=== PATIENT | male | born 1955 | race Caucasian/White ===

== ENCOUNTER 2017-04-20 17:08 | Inpatient (IN) | payer OTHER ==
[~2017-04-20] VITALS: Ht 182.9 cm; Wt 97.4 kg
[2017-04-20] VITALS (12 sets, daily range): BP systolic 96–142; BP diastolic 54–77; PULSE 58–86; RESP 16–20; TEMP 97.7; O2SAT 84–97
[~2017-04-20 17:08] MED LIST: ALBU8I INH; ALFU10TA2 PO; AZIT250T74 PO; CLON0.2T PO; FURO1TAB93 PO; HEP C MEDICATION PO; HYDR-2768 PO; HYDR25TA35 PO; KCL10 PO; LISI10 PO; OMEP20TA39 PO; PRED20 PO; PROP40TA3 PO; SYMB160A INH; Z.0.OXYGENDME NC; [UNRECOGNIZED DRUG - CODE] PO
[2017-04-20] MEDS ORDERED: CLON0.2T PO (17:33)
[2017-04-20] MEDS ORDERED: SPIR50TA PO (17:33)
[2017-04-20] MEDS ORDERED: LISI10TA3 PO (17:33)
[2017-04-20] MEDS ORDERED: PROP40TA3 PO (17:33)
[2017-04-20] MEDS ORDERED: SODIUM CHLORIDE 0.9% FLUSH 10 ML FLUSH IVF PRN (17:45)
[2017-04-20] MEDS ORDERED: methylPREDNISolone SOD SUCC 125 MG/2 ML VIAL IV PUSH ONE (17:45)
[2017-04-20] MEDS: RESP: ALBUTEROL 2.5 MG/IPRATROPIUM 0.5 MG NEB (SCH) INH ×2 (17:48→17:51)
--- NOTE | 2017-04-20 17:59 | PD ---
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 He states that he lately has been using oxygen most of the time about 3 or so liters at home. He states the past couple of days he felt like he had the flu with cough and congestion and shortness of breath. He denies any other concurrent complaints at this time. Patient is a poor historian and his helps supplement history. He is currently not on antibiotics but is on steroids. PFSH Past Medical History Arthritis: No Asthma: No Anxiety: No Depression: No Heart Rhythm Problems: No Cancer: No Cardiovascular Problems: Yes High Cholesterol: No Chemotherapy: No Chest Pain: Yes Congestive Heart Failure: No COPD: Yes Cerebrovascular Accident: No Diabetes: No Endocrine: No GERD: Yes Genitourinary: No Hepatitis: Yes (HEP C) Hiatal Hernia: No Hypertension: Yes Immune Disorder: No Kidney Stones: No Musculoskeletal: No Neurologic: No Psychiatric: No Reproductive: No Respiratory: Yes Migraines: No Radiation Therapy: No Renal Failure: No Seizures: No Sickle Cell Disease: No Sleep Apnea: No Thyroid Disease: No Ulcer: No Influenza Vaccination: No Past Surgical History Abdominal Surgery: No AICD: No Arteriovenous Shunt: No Cardiac Surgery: No Ear Surgery: No Endocrine Surgery: No Eye Surgery: Yes (CATARACTS BILAT RAYSA) Genitourinary Surgery: Yes Gynecologic Surgery: No Insulin Pump: No Joint Replacement: No Oral Surgery: No Pacemaker: No Thoracic Surgery: Yes (lung biopsy ) Other Surgery: Yes (HEMORRHOIDS) Social History Alcohol Use: Yes (COUPLE OF BEERS DAILY ) Tobacco Use: No (QUIT 2006) Substance Use: No Allergies-Medications (Allergen,Severity, Reaction): Coded Allergies: penicillin G (Unverified Allergy, Unknown, "almost killed me", 04/20/17) Reported Meds & Prescriptions Reported Meds & Active Scripts Active Reported Lisinopril 10 Mg Tab 10 Mg PO DAILY Propranolol (Propranolol HCl) 40 Mg Tab 40 Mg PO DAILY Spironolactone 50 Mg Tab 50 Mg PO DAILY Review of Systems Except as stated in HPI: all other systems reviewed are Neg Physical Exam Narrative GENERAL: Well-nourished, well-developed patient. SKIN: Warm and dry. HEAD: Normocephalic and atraumatic. EYES: No injection or drainage. ENT: No nasal drainage noted. NECK: Supple, trachea midline. CARDIOVASCULAR: Regular rate and rhythm RESPIRATORY: Decreased aeration with expiratory wheezing bilaterally. No accessory muscle use. GASTROINTESTINAL: Abdomen soft, non-tender, nondistended. EXTREMITIES: No edema. NEUROLOGICAL: Awake and alert. moves all extremities and sensory grossly within normal limits. Normal speech. Data Data Last Documented VS Orders Orders Complete Blood Count With Diff (04/20/17 17:34) Comprehensive Metabolic Panel (04/20/17 17:34) B-Type Natriuretic Peptide (04/20/17 17:34) Act Partial Throm Time (Ptt) (04/20/17 17:34) Prothrombin Time / Inr (Pt) (04/20/17 17:34) Magnesium (Mg) (04/20/17 17:34) Ckmb (Isoenzyme) Profile (04/20/17 17:34) Troponin I (04/20/17 17:34) Urinalysis - C+S If Indicated (04/20/17 17:34) Influenzae A/B Antigen (04/20/17 17:34) Blood Culture (04/20/17 17:34) Iv Access Insert/Monitor (04/20/17 17:34) Electrocardiogram (04/20/17 17:34) Ecg Monitoring (04/20/17 17:34) Oximetry (04/20/17 17:34) Oxygen Administration (04/20/17 17:34) Chest, Single Ap (04/20/17 17:34) Sodium Chloride 0.9% Flush (Ns Flush) (04/20/17 17:45) Methylprednisolone So Succ Inj (Solumedr (04/20/17 17:45) Albuterol-Ipratropium Neb (Duoneb Neb) (04/20/17 17:45) Lactic Acid (04/20/17 17:34) Aztreonam Inj (Azactam Inj) (04/20/17 18:15) Levofloxacin 750 Mg Premix Inj (Levaquin (04/20/17 18:15) Sodium Chlor 0.9% 1000 Ml Inj (Ns 1000 M (04/20/17 19:00) Sodium Chlor 0.9% 1000 Ml Inj (Ns 1000 M (04/20/17 19:30) Furosemide Inj (Lasix Inj) (04/20/17 21:15) Sodium Chloride 0.9% Flush (Ns Flush) (04/20/17 22:30) Sodium Chloride 0.9% Flush (Ns Flush) (04/21/17 09:00) Levofloxacin 500 Mg Premix Inj (Levaquin (04/21/17 21:00) Albuterol-Ipratropium Neb (Duoneb Neb) (04/20/17 22:30) Methylprednisolone So Succ Inj (Solumedr (04/20/17 22:30) Place In Observation (04/20/17 ) Vital Signs (Adult) Q4H (04/20/17 22:16) Activity Oob With Assistance PRN (04/20/17 22:16) Notify Parameters (04/20/17 22:16) Intake + Output Q8H (04/20/17 22:16) ^ Smoking Cessation Counseling (04/20/17 22:16) Diet Heart Healthy (04/21/17 Breakfast) Complete Blood Count With Diff (04/21/17 06:00) Basic Metabolic Panel (Bmp) (04/21/17 06:00) Heparin Inj (Heparin Inj) (04/20/17 22:30) Admit Order (Ed Use Only) (04/20/17 ) Vital Signs (Adult) Q4H (04/20/17 22:20) Labs Laboratory Tests Test 04/20/17 18:00 04/20/17 19:11 White Blood Count 18.9 TH/MM3 Red Blood Count 4.96 MIL/MM3 Hemoglobin 15.2 GM/DL Hematocrit 47.1 % Mean Corpuscular Volume 95.1 FL Mean Corpuscular Hemoglobin 30.7 PG Mean Corpuscular Hemoglobin Concent 32.3 % Red Cell Distribution Width 12.8 % Platelet Count 133 TH/MM3 Mean Platelet Volume 9.6 FL Neutrophils (%) (Auto) 82.4 % Lymphocytes (%) (Auto) 6.3 % Monocytes (%) (Auto) 9.2 % Eosinophils (%) (Auto) 0.3 % Basophils (%) (Auto) 1.8 % Neutrophils # (Auto) 15.6 TH/MM3 Lymphocytes # (Auto) 1.2 TH/MM3 Monocytes # (Auto) 1.7 TH/MM3 Eosinophils # (Auto) 0.1 TH/MM3 Basophils # (Auto) 0.3 TH/MM3 CBC Comment AUTO DIFF Differential Comment AUTO DIFF CONFIRMED Prothrombin Time 12.0 SEC Prothromb Time International Ratio 1.2 RATIO Activated Partial Thromboplast Time 29.0 SEC B-Type Natriuretic Peptide 86 PG/ML Blood Urea Nitrogen 19 MG/DL Creatinine 1.90 MG/DL Random Glucose 128 MG/DL Total Protein 7.2 GM/DL Albumin 2.7 GM/DL Calcium Level 8.6 MG/DL Magnesium Level 1.9 MG/DL Alkaline Phosphatase 50 U/L Aspartate Amino Transf (AST/SGOT) 10 U/L Alanine Aminotransferase (ALT/SGPT) 12 U/L Total Bilirubin 0.6 MG/DL Sodium Level 131 MEQ/L Potassium Level 4.7 MEQ/L Chloride Level 91 MEQ/L Carbon Dioxide Level 35.1 MEQ/L Anion Gap 5 MEQ/L Estimat Glomerular Filtration Rate 36 ML/MIN Lactic Acid Level 1.7 mmol/L Total Creatine Kinase 22 U/L Troponin I LESS THAN 0.02 NG/ML MDM Medical Decision Making Medical Screen Exam Complete: Yes Emergency Medical Condition: Yes Medical Record Reviewed: Yes (pmh confirmed) Differential Diagnosis Sepsis, pneumonia, URI, COPD exacerbation, pneumothorax Narrative Course Will check blood work, chest x-ray, influenza and dose with DuoNeb's and Solu- Medrol and reevaluate Physician Communication Physician Communication dr valentin to follow workup and admit Scripts Fluticasone-Salmeterol Inh (Advair Diskus Inh) 250-50 Mcg/Blist Aer 1 PUFF INH BID for Shortness of Breath for 30 Days, #1 INHALER 0 Refills Rinse mouth after use. Prov: Mona Osuna CREW LEAD 04/22/17 Clonidine (Clonidine) 0.1 Mg Tab 0.1 MG PO HS for Blood Pressure Management for 30 Days, #30 TAB 0 Refills Prov: Mona Osuna CREW LEAD 04/22/17 Doxycycline Hyclate (Doxycycline Hyclate) 100 Mg Cap 100 MG PO BID for Infection for 5 Days, #10 CAP 0 Refills Prov: Mona Osuna CREW LEAD 04/22/17 Toya Hernández MD Apr 20, 2017 17:59
--- NOTE | 2017-04-20 18:05 | RADRPT ---
EXAM DATE/TIME: 04/20/2017 17:48 [facility] COMPARISON: CHEST SINGLE AP, January 16, 2016, 14:24. INDICATIONS : Low blood pressure. Patient sent to the emergency room from primary doctor's office. MEDICAL HISTORY : Chronic obstructive pulmonary disease. Hypertension Emphysema. Hep C. GERD. SURGICAL HISTORY : None. ENCOUNTER: Initial ACUITY: 1 day PAIN SCORE: 0/10 LOCATION: Bilateral chest FINDINGS: A single view of the chest demonstrates interval development of a rather diffuse, predominantly inter stitial process in the right hemithorax, most severe in the right upper lung. Minimal interstitial ch anges on the left apex very left base is completely clear. Heart size is normal. Osseous structures a re intact. CONCLUSION: 1. Interval development of a predominantly interstitial process in the right hemithorax, most severe in the upper lobe. Similar findings to a much lesser degree in the left upper lobe. Findings could re present pneumonic infiltrates. 2. Heart size remains normal. Walker Ashton MD on April 20, 2017 at 18:01 Board Certified Radiologist. This report was verified electronically.
[2017-04-20] MEDS ORDERED: AZTREONAM INJ 2,000 MG in SODIUM CHLORIDE 0.9% INJ 100 ML IV ONE (18:15)
[2017-04-20] MEDS ORDERED: LEVOFLOXACIN 750 MG PREMIX INJ 150 ML IV ONE (18:15)
[2017-04-20 18:38] LABS: AUTOMATED NEUTROPHIL # 15.6 TH/MM3 (1.8-7.7); BASOPHIL # 0.3 TH/MM3 (0-0.2); BASOPHIL % 1.8 % (0.0-2.0); EOSINOPHIL # 0.1 TH/MM3 (0-0.4); EOSINOPHIL % 0.3 % (0.0-4.0); HEMATOCRIT 47.1 % (39.0-51.0); HEMOGLOBIN 15.2 GM/DL (13.0-17.0); LYMPH % 6.3 % (9.0-44.0); LYMPHOCYTE # 1.2 TH/MM3 (1.0-4.8); MEAN CELL VOLUME 95.1 FL (80.0-100.0); MEAN CORPUSCULAR HEMOGLOBIN 30.7 PG (27.0-34.0); MEAN CORPUSCULAR HGB CONC 32.3 % (32.0-36.0); MEAN PLATELET VOLUME 9.6 FL (7.0-11.0); MONO % 9.2 % (0.0-8.0); MONOCYTE # 1.7 TH/MM3 (0-0.9); NEUT % 82.4 % (16.0-70.0); PLATELET COUNT 133 TH/MM3 (150-450); RED BLOOD COUNT 4.96 MIL/MM3 (4.50-5.90); RED CELL DISTRIBUTION WIDTH 12.8 % (11.6-17.2); WHITE BLOOD COUNT 18.9 TH/MM3 (4.0-11.0)
[2017-04-20] MEDS ORDERED: SODIUM CHLOR 0.9% 1000 ML INJ 1,000 ML IV ONE ×2 (19:00→19:30)
[2017-04-20 19:02] LABS: INTERNATIONAL NORMALIZED RATIO 1.2 RATIO
[2017-04-20 19:33] LABS: CHLORIDE 91 MEQ/L (98-107); SODIUM (NA) 131 MEQ/L (136-145)
[2017-04-20 19:36] LABS: CALCIUM 8.6 MG/DL (8.5-10.1)
[2017-04-20 19:37] LABS: ALBUMIN 2.7 GM/DL (3.4-5.0); BICARBONATE 35.1 MEQ/L (21.0-32.0); BLOOD UREA NITROGEN 19 MG/DL (7-18); GLUCOSE,RANDOM 128 MG/DL (74-106); MAGNESIUM 1.9 MG/DL (1.5-2.5)
[2017-04-20 19:40] LABS: ALT (GPT) 12 U/L (12-78); AST (GOT) 10 U/L (15-37); GLOMERULAR FILTRATION RATE 36 ML/MIN (>89)
[2017-04-20 19:41] LABS: TOTAL BILIRUBIN ADULT 0.6 MG/DL (0.2-1.0); TOTAL PROTEIN 7.2 GM/DL (6.4-8.2)
[2017-04-20 19:43] LABS: ALKALINE PHOSPHATASE 50 U/L (45-117)
[2017-04-20 19:45] LABS: TROPONIN I LESS THAN 0.02 NG/ML (0.02-0.05)
--- NOTE | 2017-04-20 21:10 | EKG ---
Date Performed: 04/20/2017 Time Performed: 17:46:57 PTAGE: 62 years EKG: Sinus rhythm WITH OCCASIONAL VENTRICULAR PREMATURE COMPLEXES RIGHt AXIS POSSIBLE LEFT ATRIAL ENLARGEMENT POSSIBLE RIGHT VENTRICULAR HYPERTROPHY ABNORMAL ECG PREVIOUS TRACING : 01/16/2016 14.08 Since previous tracing rate faster DOCTOR: Ally Douglas Interpretating Date/Time 04/20/2017 21:08:56
[2017-04-20] MEDS ORDERED: FUROSEMIDE 20 MG/2 ML VIAL IV PUSH ONE (21:15)
--- NOTE | 2017-04-20 21:45 | PD ---
Physical Exam Date Seen by Provider: Apr 20, 2017 Narrative This patient's care was assumed from Dr. beckman at 7 PM. He had been sent to us from a open [facility] office because of hypotension. This patient has a history of COPD and is on oxygen at 3-1/2 L at home. He reports the onset of flulike symptoms about 2 days ago. He went to the open winder's office today for treatment of his flulike symptoms. He was found to be hypotensive and was sent to us for further evaluation. He has a history of hypertension but states that his blood pressure is controlled with medications. He believes that his normal systolic blood pressure is about 120 to 130. He states that he has been feeling very dizzy for the last day or 2. He denies any significant respiratory distress. Medical history is significant for COPD, hypertension and hepatitis C. He normally wears oxygen at home at 3-1/2 L. Data Data Last Documented VS Vital Signs Date Time Temp Pulse Resp B/P (MAP) Pulse Ox O2 Delivery O2 Flow Rate FiO2 04/20/17 21:05 82 20 142/68 (92) 96 Nasal Cannula 3.50 04/20/17 17:21 97.7 Orders Orders Complete Blood Count With Diff (04/20/17 17:34) Comprehensive Metabolic Panel (04/20/17 17:34) B-Type Natriuretic Peptide (04/20/17 17:34) Act Partial Throm Time (Ptt) (04/20/17 17:34) Prothrombin Time / Inr (Pt) (04/20/17 17:34) Magnesium (Mg) (04/20/17 17:34) Ckmb (Isoenzyme) Profile (04/20/17 17:34) Troponin I (04/20/17 17:34) Urinalysis - C+S If Indicated (04/20/17 17:34) Influenzae A/B Antigen (04/20/17 17:34) Blood Culture (04/20/17 17:34) Iv Access Insert/Monitor (04/20/17 17:34) Electrocardiogram (04/20/17 17:34) Ecg Monitoring (04/20/17 17:34) Oximetry (04/20/17 17:34) Oxygen Administration (04/20/17 17:34) Chest, Single Ap (04/20/17 17:34) Sodium Chloride 0.9% Flush (Ns Flush) (04/20/17 17:45) Methylprednisolone So Succ Inj (Solumedr (04/20/17 17:45) Albuterol-Ipratropium Neb (Duoneb Neb) (04/20/17 17:45) Lactic Acid (04/20/17 17:34) Aztreonam Inj (Azactam Inj) (04/20/17 18:15) Levofloxacin 750 Mg Premix Inj (Levaquin (04/20/17 18:15) Sodium Chlor 0.9% 1000 Ml Inj (Ns 1000 M (04/20/17 19:00) Sodium Chlor 0.9% 1000 Ml Inj (Ns 1000 M (04/20/17 19:30) Furosemide Inj (Lasix Inj) (04/20/17 21:15) Sodium Chloride 0.9% Flush (Ns Flush) (04/20/17 22:30) Sodium Chloride 0.9% Flush (Ns Flush) (04/21/17 09:00) Levofloxacin 500 Mg Premix Inj (Levaquin (04/21/17 09:00) Albuterol-Ipratropium Neb (Duoneb Neb) (04/20/17 22:30) Methylprednisolone So Succ Inj (Solumedr (04/20/17 22:30) Place In Observation (04/20/17 ) Vital Signs (Adult) Q4H (04/20/17 22:16) Activity Oob With Assistance PRN (04/20/17 22:16) Notify Parameters (04/20/17 22:16) Intake + Output Q8H (04/20/17 22:16) ^ Smoking Cessation Counseling (04/20/17 22:16) Diet Heart Healthy (04/21/17 Breakfast) Complete Blood Count With Diff (04/21/17 06:00) Basic Metabolic Panel (Bmp) (04/21/17 06:00) Heparin Inj (Heparin Inj) (04/20/17 22:30) Labs Laboratory Tests Test 04/20/17 18:00 04/20/17 19:11 White Blood Count 18.9 TH/MM3 Red Blood Count 4.96 MIL/MM3 Hemoglobin 15.2 GM/DL Hematocrit 47.1 % Mean Corpuscular Volume 95.1 FL Mean Corpuscular Hemoglobin 30.7 PG Mean Corpuscular Hemoglobin Concent 32.3 % Red Cell Distribution Width 12.8 % Platelet Count 133 TH/MM3 Mean Platelet Volume 9.6 FL Neutrophils (%) (Auto) 82.4 % Lymphocytes (%) (Auto) 6.3 % Monocytes (%) (Auto) 9.2 % Eosinophils (%) (Auto) 0.3 % Basophils (%) (Auto) 1.8 % Neutrophils # (Auto) 15.6 TH/MM3 Lymphocytes # (Auto) 1.2 TH/MM3 Monocytes # (Auto) 1.7 TH/MM3 Eosinophils # (Auto) 0.1 TH/MM3 Basophils # (Auto) 0.3 TH/MM3 CBC Comment AUTO DIFF Differential Comment AUTO DIFF CONFIRMED Prothrombin Time 12.0 SEC Prothromb Time International Ratio 1.2 RATIO Activated Partial Thromboplast Time 29.0 SEC B-Type Natriuretic Peptide 86 PG/ML Blood Urea Nitrogen 19 MG/DL Creatinine 1.90 MG/DL Random Glucose 128 MG/DL Total Protein 7.2 GM/DL Albumin 2.7 GM/DL Calcium Level 8.6 MG/DL Magnesium Level 1.9 MG/DL Alkaline Phosphatase 50 U/L Aspartate Amino Transf (AST/SGOT) 10 U/L Alanine Aminotransferase (ALT/SGPT) 12 U/L Total Bilirubin 0.6 MG/DL Sodium Level 131 MEQ/L Potassium Level 4.7 MEQ/L Chloride Level 91 MEQ/L Carbon Dioxide Level 35.1 MEQ/L Anion Gap 5 MEQ/L Estimat Glomerular Filtration Rate 36 ML/MIN Lactic Acid Level 1.7 mmol/L Total Creatine Kinase 22 U/L Troponin I LESS THAN 0.02 NG/ML [facility] Supervised Visit with JOHN: No Narrative Course This patient looks good. He does not meet SIRS/sepsis criteria. He does not have any respiratory distress with talking. He did have some respiratory distress when he got up to go to the bathroom but he was off of oxygen at the time. Vital Signs Date Time Temp Pulse Resp B/P (MAP) Pulse Ox O2 Delivery O2 Flow Rate FiO2 04/20/17 21:05 82 20 142/68 (92) 96 Nasal Cannula 3.50 04/20/17 21:00 16 87 Nasal Cannula 3.00 04/20/17 20:30 76 16 110/63 (79) 94 Nasal Cannula 2.00 04/20/17 20:00 78 16 100/63 (75) 92 Nasal Cannula 2.00 04/20/17 19:45 80 16 96/61 (73) 93 Nasal Cannula 2.00 04/20/17 19:05 16 93 Nasal Cannula 2.00 04/20/17 17:50 92 Nasal Cannula 2.00 04/20/17 17:40 91 Room Air 2.00 04/20/17 17:37 19 93 Nasal Cannula 2.00 04/20/17 17:30 92 Nasal Cannula 2.00 04/20/17 17:21 97.7 86 18 126/59 (81) 85 Last Impressions Chest X-Ray 04/20/17 1734 Signed Impressions: Service Date/Time: Thursday, April 20, 2017 17:48 - CONCLUSION: 1. Interval development of a predominantly interstitial process in the right hemithorax, most severe in the upper lobe. Similar findings to a much lesser degree in the left upper lobe. Findings could represent pneumonic infiltrates. 2. Heart size remains normal. Walker Ashton MD CBC Diagram 04/20/17 18:00 BMP Diagram 04/20/17 19:11 Total Protein 7.2, Albumin 2.7 L, Calcium Level 8.6, Magnesium Level 1.9, Alkaline Phosphatase 50, Aspartate Amino Transf (AST/SGOT) 10 L, Alanine Aminotransferase (ALT/SGPT) 12, Total Bilirubin 0.6 Lactic acid is 1.7. Troponin is less than 0.02. The patient presented to us hypotensive. He was fluid resuscitated. He was watched here in the emergency department while being resuscitated. His blood pressure is now stable. I feel that he is stable to go to a regular bed other than the ICU. He has been treated for hospital-acquired pneumonia with aztreonam and Levaquin. He is penicillin allergic. Critical Care Narrative Aggregate critical care time was 45 minutes. Time to perform other separately billable procedures was not included in the critical care time. My time did not include minutes spent treating any other patients simultaneously or on activities that did not directly contribute to the patient's treatment. The services I provided to this patient were to treat and/or prevent clinically significant deterioration due to hypotension, pneumonia, rule out sepsis I provided critical care services requiring my management, as noted below: Chart data review, documentation time, medication orders and management, vital sign assessments/reviewing monitor data, ordering and reviewing lab tests, ordering and interpreting/reviewing x-rays and diagnostic studies, care of the patient and discussion of the patient with the admitting physicians Sepsis Criteria SIRS Criteria (2 or more): WBC > 66904, < 4000 or > 10% bands Sepsis Criteria (SIRS+source): Infect source susp/known Physician Communication Physician Communication Dr. Gamez Diagnosis Primary Impression: Pneumonia Qualified Codes: J18.9 - Pneumonia, unspecified organism Additional Impression: Hypotension Qualified Codes: I95.9 - Hypotension, unspecified Admitting Information Admitting Physician Requests: Admit Condition: Stable Reyna Hampton MD Apr 20, 2017 21:45
[2017-04-20] MEDS ORDERED: SODIUM CHLORIDE 0.9% FLUSH 10 ML FLUSH IV FLUSH PRN (22:30)
[2017-04-20] MEDS: methylPREDNISolone SOD SUCC 40 MG/1 ML VIAL IV PUSH SCH (23:23)
[2017-04-20] MEDS: HEPARIN SODIUM - SQ 10,000 UNITS/ML VIAL SQ SCH (23:26)
[2017-04-21] VITALS (9 sets, daily range): BP systolic 120–159; BP diastolic 77–85; PULSE 76–96; RESP 20–22; TEMP 96–97.8; O2SAT 91–96
[2017-04-21 04:13] LABS: BILIRUBIN, URINE NEG (NEG); GLUCOSE,URINE NEG (NEG); KETONE, URINE TRACE mg/dL (NEG); NITRITE,URINE NEG (NEG); URINE LEUKOCYTE ESTERASE NEG (NEG)
[2017-04-21 04:21] LABS: BLOOD, URINE TRACE (NEG); URINE COLOR YELLOW (YELLW/STRAW)
[2017-04-21 04:23] LABS: MUCUS URINE MOD /lpf (OCC); SQUAMOUS EPITHELIAL CELL URINE 0-5 /hpf (0-5)
[2017-04-21 04:25] LABS: RBC, URINE 0-3 /hpf (0-3); WBC, URINE 0-2 /hpf (0-5)
[2017-04-21] MEDS: AZTREONAM INJ 2,000 MG in SODIUM CHLORIDE 0.9% INJ 100 ML IV SCH ×3 (04:37→20:58)
[2017-04-21 06:41] LABS: AUTOMATED NEUTROPHIL # 12.8 TH/MM3 (1.8-7.7); HEMATOCRIT 45.7 % (39.0-51.0); HEMOGLOBIN 14.2 GM/DL (13.0-17.0); LYMPH % 5.1 % (9.0-44.0); LYMPHOCYTE # 0.7 TH/MM3 (1.0-4.8); MEAN CELL VOLUME 93.9 FL (80.0-100.0); MEAN CORPUSCULAR HEMOGLOBIN 29.3 PG (27.0-34.0); MEAN CORPUSCULAR HGB CONC 31.2 % (32.0-36.0); MEAN PLATELET VOLUME 8.5 FL (7.0-11.0); MONO % 2.8 % (0.0-8.0); MONOCYTE # 0.4 TH/MM3 (0-0.9); NEUT % 92.1 % (16.0-70.0); PLATELET COUNT 124 TH/MM3 (150-450); RED BLOOD COUNT 4.86 MIL/MM3 (4.50-5.90); RED CELL DISTRIBUTION WIDTH 12.3 % (11.6-17.2); WHITE BLOOD COUNT 13.9 TH/MM3 (4.0-11.0)
[2017-04-21 07:03] LABS: BICARBONATE 35.2 MEQ/L (21.0-32.0); CALCIUM 8.3 MG/DL (8.5-10.1); CREATININE 0.94 MG/DL (0.60-1.30)
[2017-04-21] MEDS: RESP: ALBUTEROL 2.5 MG/IPRATROPIUM 0.5 MG NEB (PRN) INH ×3 (07:38→21:04)
[2017-04-21] MEDS: SODIUM CHLORIDE 0.9% FLUSH 10 ML FLUSH IV FLUSH SCH ×2 (09:44→20:58)
[2017-04-21] MEDS: HEPARIN SODIUM - SQ 10,000 UNITS/ML VIAL SQ SCH ×3 (09:49→22:20)
[2017-04-21] MEDS: methylPREDNISolone SOD SUCC 40 MG/1 ML VIAL IV PUSH SCH ×2 (12:20→22:29)
[2017-04-21] MEDS ORDERED: VANCOMYCIN 1 GM/200 ML INJ 200 ML IV SCH (17:30)
[2017-04-21] MEDS ORDERED: Vancomycin Consult Pharmacy 1 EA OTHER SCH (17:30)
--- NOTE | 2017-04-21 17:56 | HHI.HP ---
[facility] Admission Diagnosis Pneumonia Diagnoses: Chief Complaint: Shortness of breath Travel History International Travel<30 Days: No Contact w/Intl Traveler <30 Da: No Traveled to Known Affected Are: No History of Present Illness Written by Mona Osuna, acting as scribe for Dr. Lilly on 04/21/17 at 17: 48. This is a pleasant 62-year-old male patient with a known medical history of COPD and hypertension who presented to the ED with complaints of low blood pressure and shortness of breath. 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 Patient states that over the past few days he is becoming increasingly short of breath requiring increased use of his home oxygen. He states he usually uses roughly 2 L NC at home continuously and has had to increase it to 3.5 L NC. Patient denies any recent cough. He does state that he has been feeling under the weather and with the flu and admits to recent fever or diaphoresis. Does admit to recent steroid use denies any recent antibiotics. Denies any chest pain, abdominal pain, nausea, vomiting or diarrhea. Review of Systems Constitutional: DENIES: Fatigue, Fever, Chills Eyes: DENIES: Blurred vision, Diplopia Respiratory: COMPLAINS OF: Cough, Sputum production, Shortness of breath Cardiovascular: DENIES: Chest pain, Palpitations Gastrointestinal: DENIES: Abdominal pain, Black stools, Bloody stools, Constipation, Diarrhea, Nausea, Vomiting Musculoskeletal: DENIES: Joint pain Integumentary: DENIES: Abnormal pigmentation Hematologic/lymphatic: DENIES: Bruising Immunologic/allergic: DENIES: Eczema Neurologic: DENIES: Abnormal gait Psychiatric: COMPLAINS OF: Anxiety Except as stated in HPI: all other systems reviewed are Neg Past Family Social History Past Medical History COPD History of hepatitis C Hypertension Past Surgical History Hemorrhoid banding Colonoscopy Lung biopsy Bilateral cataracts Ruptured testicle repair Reported Medications Active Reported Clonidine (Clonidine HCl) 0.2 Mg Tab 0.2 Mg PO HS Lisinopril 10 Mg Tab 10 Mg PO DAILY Propranolol (Propranolol HCl) 40 Mg Tab 40 Mg PO DAILY Spironolactone 50 Mg Tab 50 Mg PO DAILY Allergies: Coded Allergies: penicillin G (Unverified Allergy, Unknown, "almost killed me", 04/20/17) Active Ordered Medications Current Medications Medications (Trade) Dose Ordered Sig/[place] Route Start Time Stop Time Status Last Admin (NS Flush) 2 ml UNSCH PRN IVF 04/20/17 17:45 (NS Flush) 2 ml UNSCH PRN IV FLUSH 04/20/17 22:30 (NS Flush) 2 ml BID IV FLUSH 04/21/17 09:00 04/21/17 09:44 Levofloxacin/ Dextrose 100 ml @ 100 mls/hr Q24H IV 04/21/17 21:00 (Duoneb Neb) 1 ampule Q4HR NEB PRN INH 04/20/17 22:30 04/21/17 14:07 (SoluMEDROL INJ) 40 mg Q12H IV PUSH 04/20/17 22:30 04/21/17 12:20 (Heparin Inj) 5,000 units Q8H SQ 04/20/17 22:30 04/21/17 09:49 Aztreonam 2000 mg/ Sodium Chloride 100 ml @ 200 mls/hr Q8H IV 04/21/17 04:00 04/21/17 12:23 Pharmacy Profile Note 0 ml @ 0 mls/hr UNSCH OTHER 04/21/17 17:30 Vancomycin HCl 2000 mg/Sodium Chloride 520 ml @ 250 mls/hr ONCE ONCE IV 04/21/17 18:00 04/21/17 20:04 Family History Family history significant for diabetes and lung cancer. Social History Patient denies any current tobacco use, states he quit over ten years ago. Denies any alcohol or illicit drug use. Physical Exam Vital Signs Vital Signs Date Time Temp Pulse Resp B/P (MAP) Pulse Ox O2 Delivery O2 Flow Rate FiO2 04/21/17 12:00 97.2 90 20 142/85 (104) 93 04/21/17 08:00 97.8 85 20 143/85 (104) 92 04/21/17 07:39 96 Nasal Cannula 3.50 04/21/17 04:00 96.0 76 20 120/78 (92) 91 04/21/17 00:40 92 Nasal Cannula 3.50 04/21/17 00:30 96.0 79 20 120/77 (91) 93 04/21/17 00:30 96.0 79 20 120/77 (91) 93 04/21/17 00:10 04/20/17 23:30 70 16 119/77 (91) 94 Nasal Cannula 3.50 04/20/17 23:00 72 16 97/54 (68) 97 Nasal Cannula 3.50 04/20/17 22:30 58 16 128/62 (84) 84 Nasal Cannula 3.50 04/20/17 22:00 78 16 105/72 (83) 94 Nasal Cannula 3.50 04/20/17 21:30 78 16 117/64 (81) 94 Nasal Cannula 3.50 04/20/17 21:05 82 20 142/68 (92) 96 Nasal Cannula 3.50 04/20/17 21:00 16 87 Nasal Cannula 3.00 04/20/17 20:30 76 16 110/63 (79) 94 Nasal Cannula 2.00 04/20/17 20:00 78 16 100/63 (75) 92 Nasal Cannula 2.00 04/20/17 19:45 80 16 96/61 (73) 93 Nasal Cannula 2.00 04/20/17 19:05 16 93 Nasal Cannula 2.00 04/20/17 17:50 92 Nasal Cannula 2.00 Physical Exam GENERAL: Well-nourished, well-developed patient in NAD. On supplemental O2. SKIN: Warm and dry. No rash. HEAD: Normocephalic. Atraumatic. EYES: Pupils equal and round. No scleral icterus. No injection or drainage. ENT: No nasal bleeding or discharge. Mucous membranes pink and moist. NECK: Supple. Trachea midline. CARDIOVASCULAR: Regular rate and rhythm. S1, S2 noted. No murmur appreciated. RESPIRATORY: No accessory muscle use. Diffuse crackles at the right base. Breath sounds equal bilaterally. GASTROINTESTINAL: Abdomen soft, non-tender, nondistended. Normoactive bowel sounds x4. MUSCULOSKELETAL: No obvious deformities. Extremities without clubbing, cyanosis , or edema. NEUROLOGICAL: Awake and alert. No obvious cranial nerve deficits. Motor grossly within normal limits. 5/5 muscle strength in bilateral upper and lower extremities. Normal speech. PSYCHIATRIC: Appropriate mood and affect; insight and judgment normal. Laboratory Laboratory Tests Test 04/20/17 18:00 04/20/17 19:11 04/21/17 03:30 04/21/17 06:20 White Blood Count 18.9 13.9 Red Blood Count 4.96 4.86 Hemoglobin 15.2 14.2 Hematocrit 47.1 45.7 Mean Corpuscular Volume 95.1 93.9 Mean Corpuscular Hemoglobin 30.7 29.3 Mean Corpuscular Hemoglobin Concent 32.3 31.2 Red Cell Distribution Width 12.8 12.3 Platelet Count 133 124 Mean Platelet Volume 9.6 8.5 Neutrophils (%) (Auto) 82.4 92.1 Lymphocytes (%) (Auto) 6.3 5.1 Monocytes (%) (Auto) 9.2 2.8 Eosinophils (%) (Auto) 0.3 0.0 Basophils (%) (Auto) 1.8 0.0 Neutrophils # (Auto) 15.6 12.8 Lymphocytes # (Auto) 1.2 0.7 Monocytes # (Auto) 1.7 0.4 Eosinophils # (Auto) 0.1 0.0 Basophils # (Auto) 0.3 0.0 CBC Comment AUTO DIFF DIFF FINAL Differential Comment AUTO DIFF CONFIRMED Prothrombin Time 12.0 Prothromb Time International Ratio 1.2 Activated Partial Thromboplast Time 29.0 B-Type Natriuretic Peptide 86 Blood Urea Nitrogen 19 18 Creatinine 1.90 0.94 Random Glucose 128 148 Total Protein 7.2 Albumin 2.7 Calcium Level 8.6 8.3 Magnesium Level 1.9 Alkaline Phosphatase 50 Aspartate Amino Transf (AST/SGOT) 10 Alanine Aminotransferase (ALT/SGPT) 12 Total Bilirubin 0.6 Sodium Level 131 136 Potassium Level 4.7 4.5 Chloride Level 91 99 Carbon Dioxide Level 35.1 35.2 Anion Gap 5 2 Estimat Glomerular Filtration Rate 36 81 Lactic Acid Level 1.7 Total Creatine Kinase 22 Troponin I LESS THAN 0.02 Urine Color YELLOW Urine Turbidity CLEAR Urine pH 6.0 Urine Specific [place] 1.017 Urine Protein 30 Urine Glucose (UA) NEG Urine Ketones TRACE Urine Occult Blood TRACE Urine Nitrite NEG Urine Bilirubin NEG Urine Leukocyte Esterase NEG Urine RBC 0-3 Urine WBC 0-2 Urine Squamous Epithelial Cells 0-5 Urine Hyaline Casts 10-14 Urine Fine Granular Casts 3-5 Urine Mucus MOD Microscopic Urinalysis Comment CULT NOT INDICATED Date/Time Source Procedure Growth Status 04/20/17 18:05 Blood Peripheral Aerobic Blood Culture - Preliminary NO GROWTH IN 1 DAY Resulted 04/20/17 18:05 Blood Peripheral Anaerobic Blood Culture - Preliminary NO GROWTH IN 1 DAY Resulted 04/20/17 17:43 Nasal Aspirate Influenza Types A,B Antigen (RAMSEY) - Final NEGATIVE FOR FLU A AND B ANTIGEN.... Complete Result Diagram: 04/21/17 0620 04/21/17 0620 Imaging Last Impressions Chest X-Ray 04/20/17 1734 Signed Impressions: Service Date/Time: Thursday, April 20, 2017 17:48 - CONCLUSION: 1. Interval development of a predominantly interstitial process in the right hemithorax, most severe in the upper lobe. Similar findings to a much lesser degree in the left upper lobe. Findings could represent pneumonic infiltrates. 2. Heart size remains normal. Walker Ashton MD Septic Shock Reassessment Septic shock perfusion: reassessment completed Caprini VTE Risk Assessment Caprini VTE Risk Assessment: No/Low Risk (score <= 1) Caprini Risk Assessment Model Point Value = 1 Point Value = 2 Point Value = 3 Point Value = 5 Age 41-60 Minor surgery BMI > 25 kg/m2 Swollen legs Varicose veins or History of unexplained or recurrent spontaneous Oral contraceptives or hormone replacement Sepsis (< 1 month) Serious lung disease, including pneumonia (< 1 month) Abnormal pulmonary function Acute myocardial infarction Congestive heart failure (< 1 month) History of inflammatory bowel disease Medical patient at bed rest Age 61-74 Arthroscopic surgery Major open surgery (> 45 min) Laparoscopic surgery (> 45 min) Malignancy Confined to bed (> 72 hours) Immobilizing plaster cast Central venous access Age >= 75 History of VTE Family history of VTE Factor V Leiden Prothrombin [id number] Lupus anticoagulant Anticardiolipin antibodies Elevated serum homocysteine Heparin-induced thrombocytopenia Other congenital or acquired thrombophilia Stroke (< 1 month) Elective arthroplasty Hip, pelvis, or leg fracture Acute spinal cord injury (< 1 month) Prophylaxis Regimen Total Risk Factor Score Risk Level Prophylaxis Regimen 0-1 Low Early ambulation 2 Moderate Order ONE of the following: *Sequential Compression Device (SCD) *Heparin 5000 units SQ BID 3-4 Higher Order ONE of the following medications: *Heparin 5000 units SQ TID *Enoxaparin/Lovenox 40 mg SQ daily (WT < 150 kg, CrCl > 30 mL/min) *Enoxaparin/Lovenox 30 mg SQ daily (WT < 150 kg, CrCl > 10-29 mL/min) *Enoxaparin/Lovenox 30 mg SQ BID (WT < 150 kg, CrCl > 30 mL/min) AND/OR *Sequential Compression Device (SCD) 5 or more Highest Order ONE of the following medications: *Heparin 5000 units SQ TID (Preferred with Epidurals) *Enoxaparin/Lovenox 40 mg SQ daily (WT < 150 kg, CrCl > 30 mL/min) *Enoxaparin/Lovenox 30 mg SQ daily (WT < 150 kg, CrCl > 10-29 mL/min) *Enoxaparin/Lovenox 30 mg SQ BID (WT < 150 kg, CrCl > 30 mL/min) AND *Sequential Compression Device (SCD) Assessment and Plan Problem List: (1) COPD with exacerbation ICD Code: J44.1 - Chronic obstructive pulmonary disease with (acute) exacerbation Plan: Patient placed on IV antibiotics including Levaquin and Azactam. Also started on IV steroids scheduled. Continue duo nebs as needed for shortness of breath. Chest x-ray reviewed showing interval development of a predominantly interstitial process in the right hemithorax, could represent pneumonic infiltrates. Blood cultures drawn and no growth to date. Continue to follow. Influenza negative. UA negative. Patient has been afebrile. Leukocytosis noted on presentation, white blood cell 18.9, now decreased to 13.9. Repeat labs in a.m. Continue supplemental O2 as needed. Status post 2 L NS bolus in ED. (2) Hypertension ICD Code: I10 - Essential (primary) hypertension Plan: Continue home medications. Monitor BP trends. Mildly elevated, systolic in the 150s. DVT prophylaxis: SCDs. Heparin. Assessment and Plan This note was transcribed by [email or web address] []. I, Dr. Yobani Juarez personally performed the history, physical exam, and medical decision making; and confirmed the accuracy of the information in the transcribed note. Authenticated by Dr. Yobani Juarez on 04/21/17 at 20:45. Physician Certification 2 Midnight Certification Type: Admission for Inpatient Services Order for Inpatient Services The services are ordered in accordance with Medicare regulations or non- Medicare payer requirements, as applicable. In the case of services not specified as inpatient-only, they are appropriately provided as inpatient services in accordance with the 2-midnight benchmark. Estimated LOS (days): 3 3 days is the estimated time the patient will need to remain in the hospital, assuming treatment plan goals are met and no additional complications. Post-Hospital Plan: Home Mona Osuna Apr 21, 2017 17:55 Yobani Amos MD Apr 21, 2017 20:45
[2017-04-21] MEDS ORDERED: VANCOMYCIN INJ 2,000 MG in SODIUM CHLORID 0.9% 500 ML INJ 500 ML IV ONE (18:00)
[2017-04-21] MEDS ORDERED: cloNIDine HCL 0.2 MG TAB PO SCH (21:00)
[2017-04-21] MEDS ORDERED: LEVOFLOXACIN 500 MG PREMIX INJ 100 ML IV SCH (21:00)
[2017-04-22] VITALS: BP 124/77; PULSE 93; RESP 20; TEMP 96; O2SAT 92
[2017-04-22] MEDS: AZTREONAM INJ 2,000 MG in SODIUM CHLORIDE 0.9% INJ 100 ML IV SCH ×2 (04:38→12:05)
[2017-04-22] MEDS: HEPARIN SODIUM - SQ 10,000 UNITS/ML VIAL SQ SCH ×2 (05:51→14:30)
[2017-04-22] MEDS ORDERED: VANCOMYCIN 1,500 MG/NS 500 ML IV SCH ×2 (06:00)
[2017-04-22 06:45] LABS: CALCIUM 8.7 MG/DL (8.5-10.1)
[2017-04-22 06:46] LABS: BICARBONATE 33.7 MEQ/L (21.0-32.0)
[2017-04-22 06:49] LABS: CREATININE 0.7 MG/DL (0.60-1.30)
[2017-04-22 07:06] LABS: AUTOMATED NEUTROPHIL # 13.9 TH/MM3 (1.8-7.7); BASOPHIL % 0.1 % (0.0-2.0); HEMATOCRIT 43.3 % (39.0-51.0); HEMOGLOBIN 13.8 GM/DL (13.0-17.0); LYMPH % 5.3 % (9.0-44.0); LYMPHOCYTE # 0.8 TH/MM3 (1.0-4.8); MEAN CELL VOLUME 93.2 FL (80.0-100.0); MEAN CORPUSCULAR HEMOGLOBIN 29.7 PG (27.0-34.0); MEAN CORPUSCULAR HGB CONC 31.9 % (32.0-36.0); MEAN PLATELET VOLUME 8.4 FL (7.0-11.0); MONO % 4.8 % (0.0-8.0); MONOCYTE # 0.7 TH/MM3 (0-0.9); NEUT % 89.8 % (16.0-70.0); PLATELET COUNT 140 TH/MM3 (150-450); RED BLOOD COUNT 4.65 MIL/MM3 (4.50-5.90); RED CELL DISTRIBUTION WIDTH 12.5 % (11.6-17.2); WHITE BLOOD COUNT 15.4 TH/MM3 (4.0-11.0)
[2017-04-22 08:00] VITALS: BP 137/72; PULSE 76; RESP 20; TEMP 97.1; O2SAT 92
[2017-04-22] MEDS: SODIUM CHLORIDE 0.9% FLUSH 10 ML FLUSH IV FLUSH SCH (08:49)
[2017-04-22] MEDS ORDERED: PROPRANOLOL HCL 40 MG TAB PO SCH (09:00)
[2017-04-22] MEDS ORDERED: LISINOPRIL 10 MG TAB PO SCH (09:00)
[2017-04-22] MEDS: methylPREDNISolone SOD SUCC 40 MG/1 ML VIAL IV PUSH SCH (11:14)
[2017-04-22 12:00] VITALS: BP 121/68; PULSE 68; RESP 22; TEMP 96.9; O2SAT 96
--- NOTE | 2017-04-22 12:12 | HHI.DCPOC ---
Discharge Care Plan Diagnosis: (1) Pneumonia (2) Hypertension (3) COPD with exacerbation Your Health Problems Are: Shortness of Breath Goals to Promote Your Health * To prevent worsening of your condition and complications * To maintain your health at the optimal level Directions to Meet Your Goals Take your medications as prescribed Follow your dietary instruction Follow activity as directed Keep your appointments as scheduled Take your immunizations and boosters as scheduled If your symptoms worsen call your PCP, if no PCP go to Urgent Care Center or Emergency Room Smoking is Dangerous to Your Health. Avoid second hand smoke Call the 24-hour hour crisis hotline for domestic abuse at Mona Osuna Apr 22, 2017 12:12
--- NOTE | 2017-04-22 12:12 | HHI.PR ---
Subjective Remarks Follow up hypotension COPD exacerbation. Patient seen and examined, with at bedside. Doing much better. On 3 L nasal cannula, this is home baseline for him. He denies any shortness of breath with exertion or rest. Has been eating well. Positive p.m. Vital signs are stable. Afebrile. Objective Vitals Vital Signs Date Time Temp Pulse Resp B/P (MAP) Pulse Ox O2 Delivery O2 Flow Rate FiO2 04/22/17 08:00 97.1 76 20 137/72 (93) 92 04/22/17 07:00 92 Nasal Cannula 3.50 Humidified 04/22/17 00:00 96.0 93 20 124/77 (93) 92 04/21/17 21:05 93 Nasal Cannula 3.50 04/21/17 20:00 96.5 86 20 137/84 (101) 92 04/21/17 20:00 93 Nasal Cannula 3.50 Humidified 04/21/17 16:00 97.1 96 22 159/81 (107) 94 I/O 04/21/17 04/21/17 04/21/17 04/22/17 04/22/17 04/22/17 07:00 15:00 23:00 07:00 15:00 23:00 Intake Total 0 ml 950 ml 700 ml 240 ml 515 ml Balance 0 ml 950 ml 700 ml 240 ml 515 ml Intake Oral 0 ml 850 ml 240 ml IV Total 100 ml 700 ml 515 ml # Voids 1 4 2 # Bowel Movements 0 1 Result Diagram: 04/22/17 0600 04/22/17 0600 Imaging Last Impressions Chest X-Ray 04/20/17 0934 Signed Impressions: Service Date/Time: Thursday, April 20, 2017 17:48 - CONCLUSION: 1. Interval development of a predominantly interstitial process in the right hemithorax, most severe in the upper lobe. Similar findings to a much lesser degree in the left upper lobe. Findings could represent pneumonic infiltrates. 2. Heart size remains normal. Walker Ashton MD Objective Remarks GENERAL: Well-nourished, well-developed patient in NAD. On supplemental O2. In no apparent distress. SKIN: Warm and dry. No rash. HEAD: Normocephalic. Atraumatic. EYES: Pupils equal and round. No scleral icterus. No injection or drainage. ENT: No nasal bleeding or discharge. Mucous membranes pink and moist. NECK: Supple. Trachea midline. CARDIOVASCULAR: Regular rate and rhythm. S1, S2 noted. No murmur appreciated. RESPIRATORY: No accessory muscle use. Clear to auscultation. Breath sounds equal bilaterally. GASTROINTESTINAL: Abdomen soft, non-tender, nondistended. Normoactive bowel sounds x4. MUSCULOSKELETAL: No obvious deformities. Extremities without clubbing, cyanosis , or edema. NEUROLOGICAL: Awake and alert. No obvious cranial nerve deficits. Motor grossly within normal limits. 5/5 muscle strength in bilateral upper and lower extremities. Normal speech. PSYCHIATRIC: Appropriate mood and affect; insight and judgment normal. A/P Problem List: (1) COPD with exacerbation ICD Code: J44.1 - Chronic obstructive pulmonary disease with (acute) exacerbation Plan: Patient placed on IV antibiotics including Levaquin and Azactam. Also started on IV steroids scheduled. Continue duo nebs as needed for shortness of breath. Chest x-ray reviewed showing interval development of a predominantly interstitial process in the right hemithorax, could represent pneumonic infiltrates. Blood cultures drawn and no growth to date. Influenza negative. UA negative. Patient has been afebrile. Leukocytosis noted on presentation, likely due to steroids. Continue supplemental O2 as needed. At home baseline. Status post 2 L NS bolus in ED. Eating well. Patient will be discharged home later today on steroids and antibiotics by mouth. 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 Patient is stable at this time and agreeable to the plan. (2) Hypertension ICD Code: I10 - Essential (primary) hypertension Plan: Continue home medications. Monitor BP trends. Stable. DVT prophylaxis: SCDs. Heparin. Discharge Planning Will discharge home later this afternoon. Mona Osuna Apr 22, 2017 12:12
[2017-04-22] MEDS ORDERED: DOXY100C PO (12:24)
[2017-04-22] MEDS ORDERED: CLON0.1T PO (12:26)
[2017-04-22] MEDS ORDERED: ADVA250A INH (12:27)
[2017-04-22] MEDS ORDERED: SPIRONOLACTONE 50 MG TAB PO SCH (12:30)
[2017-04-22 14:46] VITALS: O2SAT 94
[2017-04-23] MEDS ORDERED: PHARMACY ORDERED LAB ONE (05:45)
--- NOTE | 2017-04-23 10:08 | PQ ---
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
== END 2017-04-22 16:26 | disposition home or self-care (01) | DRG 193 ==
LOC: PHED 17:08 → PHEDA 22:21 → PH3A 04-21 00:11 → OBSVTOIN 04-21 12:05
PROVIDERS: ADMIT Hospitalist; ATTEND Hospitalist
DX: J18.9 Pneumonia, unspecified organism (principal); J96.20 Acute and chronic respiratory failure, unspecified whether with hypoxia or hypercapnia; I95.9 Hypotension, unspecified; Z99.81 Dependence on supplemental oxygen; K21.9 Gastro-esophageal reflux disease without esophagitis; J44.0 Chronic obstructive pulmonary disease with (acute) lower respiratory infection; J44.1 Chronic obstructive pulmonary disease with (acute) exacerbation; I10 Essential (primary) hypertension; Z86.19 Personal history of other infectious and parasitic diseases; Z87.891 Personal history of nicotine dependence
CPT/HCPCS: 71045; 80048; 80053; 81001; 82550; 83605; 83735; 83880; 84484; 85025; 85610; 85730; 87040; 87804; 93005; 94640; 94664; 96361; 96365; 96366; 96372; 96375; 96376; G0378; J1644; J1956; J2920; J2930; J3370; J7030; J7040